=== PATIENT | male | born 1995 | race Caucasian/White ===

== ENCOUNTER 2018-08-29 21:03 | Emergency (ER) | payer BC, OTHER ==
[2018-08-29 21:36] VITALS: O2SAT 99
[2018-08-29] MEDS ORDERED: Eye-Stream Solution OP ONE (21:54)
[2018-08-29] MEDS ORDERED: Fluor-I-Strip/Ful-Flo OP ONE ×2 (21:54→22:07)
[2018-08-29] MEDS ORDERED: TETRACAINE 0.5% STERI-UNIT SOL OP STA (21:54)
--- NOTE | 2018-08-29 22:00 | ERPHSYRPT ---
- History of Present Illness Time Seen by Provider: 08/29/18 21:41 Source: patient Exam Limitations: no limitations Patient Subjective Stated Complaint: Pt states that while he was working at [employer] in [place], [place] he had a spark fly into his left eye 08/29/18 although he reports that he was wearing his safety glasses side monahan. Pt c/o pain, blurred vision, and drainage from left eye. Triage Nursing Assessment: Pt alert and oriented. In no apparent distress. Reports pain 5/10 in left eye with blurred vision with his glasses. Pain and vision worse around 08/29/18 1730. Sclera reddened, pupil 3mm and reactive to light. Physician History: 23-year-old white male with history of migraines, seizures, hypoglycemia, fractures, anxiety, depression, Patient arrives with complaint of pain in his left eye symptoms since 12:30 or 1 :00 on August 29, 2018. 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 He denies any other complaints. Past medical history includes migraines, seizures, hypoglycemia, fractures, anxiety, depression, bowel obstruction, amblyopia, schizophrenia, insomnia. Past surgical history includes orthopedic surgery, right shoulder surgery, right index finger surgery. Social history includes chewing tobacco and 2 beers a week. Patient denies illicit drug use. Timing/Duration: today Location: left eye Severity: moderate Apparent Injury: possibly Associated Symptoms: burning, sensitivity to light, redness, blurred vision, No itching, No matting, No eyelid swelling, No foreign body sensation, No decreased vision, No double vision Visual Assistive Devices: Glasses Chemical Exposure: No Welding Arc/Tanning Bed Exposure: Yes (possible spark from welding) Allergies/Adverse Reactions: amoxicillin [Amoxicillin] Allergy (Verified 09/28/13 20:32) ceftriaxone sodium [From Rocephin] Allergy (Verified 09/28/13 20:32) latex Allergy (Verified 08/29/18 21:15) Penicillins Allergy (Verified 08/29/18 21:15) Hx Tetanus, Diphtheria Vaccination/Date Given: Yes Hx Influenza Vaccination/Date Given: No (refuses) Hx Pneumococcal Vaccination/Date Given: No Immunizations Up to Date: Yes - Review of Systems Constitutional: No Fever, No Chills Eyes: Discharge, Eye Pain, Eye Redness (get a nurse in here M answer the phone home), Tearing, Vision Changes, No Double Vision, No Foreign Body Sensation Ears, Nose, & Throat: No Symptoms Respiratory: No Cough, No Dyspnea Cardiac: No Chest Pain, No Edema, No Syncope Abdominal/Gastrointestinal: No Abdominal Pain, No Nausea, No Vomiting, No Diarrhea Genitourinary Symptoms: No Dysuria Musculoskeletal: No Back Pain, No Neck Pain Skin: No Rash Neurological: No Dizziness, No Focal Weakness, No Sensory Changes Psychological: No Symptoms Endocrine: No Symptoms All Other Systems: Reviewed and Negative - Past Medical History Pertinent Past Medical History: Yes Neurological History: Migraines, Seizures ENT History: Other Cardiac History: No Pertinent History Respiratory History: No Pertinent History Endocrine Medical History: Hypoglycemia Musculoskeletal History: Fractures GI Medical History: Other History: No Pertinent History Psycho-Social History: Anxiety, Depression, Other Male Reproductive Disorders: No Pertinent History Other Medical History: 08/26/18 was at [facility] in [place] for a "moderate bowel obstruction. ambliopia. schizophrenia. insomnia - Past Surgical History Past Surgical History: Yes Neuro Surgical History: No Pertinent History Cardiac: No Pertinent History Respiratory: No Pertinent History Gastrointestinal: No Pertinent History Genitourinary: No Pertinent History Musculoskeletal: No Pertinent History, Orthopedic Surgery Male Surgical History: No Pertinent History Other Surgical History: right shoulder pin placed d/t fx. right index finger sgy d/t laceration - Social History Smoking Status: Former smoker How long have you smoked: 5 years Exposure to second hand smoke: Yes Drug Use: none Patient Lives Alone: No (roommate) - Nursing Vital Signs Nursing Vital Signs: Initial Vital Signs Temperature 97.7 F 08/29/18 21:16 Pulse Rate 80 08/29/18 21:16 Respiratory Rate 16 08/29/18 21:16 Blood Pressure 135/93 08/29/18 21:16 O2 Sat by Pulse Oximetry 99 08/29/18 21:16 Pain Scale Pain Intensity 0 - Physical Exam Vision Acuity Degree Evaluation Phase: Corrected Vision Acuity Right Eye: 20/30 Vision Acuity Left Eye: 20/50 Eye Exam: right eye: normal inspection, left eye: other (left conjunctiva is erythematous, left sclera mildly erythematous no foreign body noted), bilateral eye: PERRL, EOMI Ears, Nose, Throat Exam: normal ENT inspection Neck Exam: normal inspection Respiratory Exam: normal breath sounds, lungs clear, airway intact, No chest tenderness, No respiratory distress, No diminished breath sounds, No accessory muscle use, No prolonged expirations, No crackles/rales, No rhonchi, No wheezing , No stridor, No pleural rub Cardiovascular Exam: regular rate/rhythm, normal heart sounds, normal peripheral pulses (Tylenol molded, and), capillary refill <2 sec, No murmur ( history), No friction rub, No gallop, No tachycardia, No bradycardia, No irregular, No capillary refill 2-3 sec, No capillary refill >3 sec, No edema, No pulse deficit Gastrointestinal Exam: soft, normal bowel sounds, No tenderness, No distention, No mass, No guarding, No pulsatile mass Extremity Exam: normal inspection, normal range of motion Neurologic: alert, oriented x 3, cooperative, outpatient program coordinator II-XII nml as tested, normal mood/affect Skin Exam: normal color SpO2 Interpretation: normal (99%) SpO2: 99 Oxygen Delivery: Room Air - Course Nursing assessment & vital signs reviewed: Yes Ordered Tests: Active Orders 24 hr Category Date Time Status Visual Acuity STAT Care 08/29/18 21:38 Active Medication Summary Discontinued Medications Generic Name Dose Route Start Last Admin Trade Name Inez PRN Reason Stop Dose Admin Eye Irrigation Solution 15 ml 08/29/18 21:54 08/29/18 22:17 Eye-Stream Solution OP 08/29/18 21:55 15 ml STAT ONE Administration Eye Irrigation Solution Confirm 08/29/18 22:07 Eye-Stream Solution Administered 08/29/18 22:08 Dose 30 ml .ROUTE .STK-MED ONE Fluorescein Sodium 1 mg 08/29/18 21:54 08/29/18 22:17 Kmork-I-Lackb/Ful-Filiberto OP 08/29/18 21:55 1 mg STAT ONE Administration Fluorescein Sodium Confirm 08/29/18 22:07 Ixkps-E-Aocqn/Ful-Filiberto Administered 08/29/18 22:08 Dose 1 mg OP .STK-MED ONE Tetracaine HCl 4 ml 08/29/18 21:54 08/29/18 22:10 Tetracaine 0.5% Steri-Unit Keila OP 08/29/18 21:55 4 ml STAT STA Administration Tetracaine HCl Confirm 08/29/18 22:07 Tetracaine 0.5% Steri-Unit Keila Administered 08/29/18 22:08 Dose 4 ml OP .STK-MED ONE - Progress Progress: improved Progress Note: 08/29/18 22:26 This is a 23-year-old white male who arrives with complaint of a foreign body sensation in his left eye symptoms since around 1:00 this morning Patient states he was at work and a had Sparc shoot up underneath his safety glasses 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 Patient states that he is having blurry vision in the left eye tearing of the left eye he has erythema of the left eye. Physical examination I examination performed with corrected vision 20/50 on the left 20/30 on the right performed by the patient's nurse. Eyes PERRLA EOMI fundi are unremarkable. Left sclera slightly injected left conjunctiva is erythematous. No foreign bodies are noted in the left eye. Both lids are everted on the left eye no foreign bodies are noted. 0.5% tetracaine is instilled in the patient's left eye for comfort. Left eye is stained with fluorisceine, no corneal abrasions are noted patient without corneal foreign bodies. Left eye is rinsed with sterile eye wash solution. Ciloxan drops 0.5% ordered for the patient's left eye. Patient is to continue Ciloxan drops 0.5% one to 2 drops left eye 4 times a day for 5 days. Will write for a small amount of Papillion for the patient for pain. Patient will be instructed to drive home with Windows closed in the car, no TV watching, no reading, no computers. Follow-up with his family doctor, or radio disc jockey, ditcher if symptoms persist longer than 48 hours or no better tomorrow. Return for acute distress or for severe symptoms, - Departure Time of Disposition: 22:29 Departure Disposition: Home Clinical Impression: foreign body sensation left eye Conjunctivitis Qualifiers: Conjunctivitis type: acute Acute conjunctivitis type: unspecified Laterality: left Qualified Code(s): H10.32 - Unspecified acute conjunctivitis, left eye Condition: Fair Critical Care Time: No Referrals: DIOMEDES BLUNT [Primary Care Provider] - Additional Instructions: Return home. Ciloxan drops 0.3% one to 2 drops left eye 4 times a day for 5 days. Papillion as prescribed. Follow-up with your family doctor, company doctor, radio disc jockey, ditcher if symptoms no better tomorrow or persist longer than [address] home with Windows closed in the car. No reading, no computers, no TV watching 24 hours. Return for acute distress or for severe symptoms Prescriptions: Hydrocodone/Acetaminophen [Papillion 5-325 Tablet] 1 tab PO Q4-6HPRN PRN #6 tablet MDD 6 tablets PRN Reason: Pain
[2018-08-29] MEDS ORDERED: Eye-Stream Solution ONE (22:07)
[2018-08-29] MEDS ORDERED: TETRACAINE 0.5% STERI-UNIT SOL OP ONE (22:07)
[2018-08-29 22:21] VITALS: BP 130/79; PULSE 81
[2018-08-29] MEDS ORDERED: Ciloxan OPHTH OP ONE (22:25)
[2018-08-29] MEDS ORDERED: Ciloxan OPHTH ONE (22:27)
[2018-08-29] MEDS ORDERED: NORCO 5/325 MG PO ONE (22:34)
[2018-08-29] MEDS ORDERED: NORCO 5/325 MG ONE (22:36)
== END 2018-08-29 22:43 | disposition home or self-care (01) ==
LOC: ED 21:03
DX: T15.92XA Foreign body on external eye, part unspecified, left eye, initial encounter (principal); H10.9 Unspecified conjunctivitis; W22.8XXA Striking against or struck by other objects, initial encounter; Y93.89 Activity, other specified; Y92.89 Other specified places as the place of occurrence of the external cause; Y99.0 Civilian activity done for income or pay
CPT/HCPCS: 99283; A9270-GY

== ENCOUNTER 2019-08-16 02:34 | Emergency (ER) | payer BC, OTHER ==
[2019-08-16] MEDS ORDERED: Zofran 4 MG/2 ML VIAL IV ONE (02:48)
[2019-08-16] MEDS ORDERED: Sodium Chloride 0.9% 1000 ML 1,000 ML IV STA ×2 (02:48→03:17)
--- NOTE | 2019-08-16 02:48 | ERPHSYRPT ---
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 pt denies illicit drug use. pt has a h/o former illicit drug abuse in the past. pt arrives to ED tachycardic. he denies cp, denies abd pain. pt does not know what medication he was taking in the distant past for seizures. pt experienced a similar episode in May 2019. he has not taken any seizure medication. Timing/Duration: today Severity: moderate Associated Symptoms: seizure, No nausea, No vomiting, No abdominal pain, No shortness of breath, No chest pain, No headaches Allergies/Adverse Reactions: amoxicillin [Amoxicillin] Allergy (Verified 09/28/13 20:32) ceftriaxone sodium [From Rocephin] Allergy (Verified 09/28/13 20:32) latex Allergy (Verified 08/29/18 21:15) Penicillins Allergy (Verified 08/29/18 21:15) Hx Tetanus, Diphtheria Vaccination/Date Given: Yes Hx Influenza Vaccination/Date Given: No (refuses) Hx Pneumococcal Vaccination/Date Given: No - Review of Systems Constitutional: No Symptoms Eyes: No Symptoms Ears, Nose, & Throat: No Symptoms Respiratory: No Symptoms Cardiac: Palpitations Abdominal/Gastrointestinal: No Symptoms Genitourinary Symptoms: No Symptoms Musculoskeletal: No Symptoms Skin: No Symptoms Neurological: Seizure Psychological: No Symptoms, No Suicidal Ideations, No Homicidal Ideations Endocrine: No Symptoms Hematologic/Lymphatic: No Symptoms Immunological/Allergic: No Symptoms All Other Systems: Reviewed and Negative - Past Medical History Pertinent Past Medical History: Yes Neurological History: Migraines, Seizures ENT History: Other Cardiac History: No Pertinent History Respiratory History: No Pertinent History Endocrine Medical History: Hypoglycemia Musculoskeletal History: Fractures GI Medical History: Other History: No Pertinent History Psycho-Social History: Anxiety, Depression, Other Male Reproductive Disorders: No Pertinent History Other Medical History: 08/26/18 was at [facility] in [place] for a "moderate bowel obstruction. ambliopia. schizophrenia. insomnia - Past Surgical History Past Surgical History: Yes Neuro Surgical History: No Pertinent History Cardiac: No Pertinent History Respiratory: No Pertinent History Gastrointestinal: No Pertinent History Genitourinary: No Pertinent History Musculoskeletal: No Pertinent History, Orthopedic Surgery Male Surgical History: No Pertinent History Other Surgical History: right shoulder pin placed d/t fx. right index finger sgy d/t laceration - Social History Smoking Status: Former smoker How long have you smoked: 5 years Exposure to second hand smoke: Yes Drug Use: none Patient Lives Alone: No (roommate) - Nursing Vital Signs Nursing Vital Signs: Initial Vital Signs Temperature 98.6 F 08/16/19 02:35 Pulse Rate 123 H 08/16/19 02:35 Respiratory Rate 18 08/16/19 02:35 Blood Pressure 124/69 08/16/19 02:35 O2 Sat by Pulse Oximetry 98 08/16/19 02:35 Pain Scale Pain Intensity 0 - Physical Exam General Appearance: moderate distress, alert, anxiety Eye Exam: PERRL/EOMI, eyes nml inspection Ears, Nose, Throat Exam: normal ENT inspection, moist mucous membranes Neck Exam: normal inspection, non-tender, supple, full range of motion Respiratory Exam: normal breath sounds, lungs clear, airway intact, No chest tenderness, No respiratory distress Cardiovascular Exam: tachycardia Gastrointestinal/Abdomen Exam: soft, normal bowel sounds, No tenderness, No guarding, No rebound Male Genitalia Exam: normal genitalia Rectal Exam: not done Back Exam: normal inspection, normal range of motion, No CVA tenderness, No vertebral tenderness Extremity Exam: normal inspection, normal range of motion, pelvis stable Neurologic Exam: alert, oriented x 3, cooperative, act tutor II-XII nml as tested, normal mood/affect Skin Exam: normal color, warm, dry Lymphatic Exam: No adenopathy O2 Delivery: Room Air - Course Nursing assessment & vital signs reviewed: Yes EKG Interpreted by Me: RATE (135), Sinus Tach, NORMAL AXIS, NORMAL INTERVALS, NORMAL QRS, Non-specific ST Changes Ordered Tests: Active Orders 24 hr Category Date Time Status Accucheck STAT Care 08/16/19 02:48 Active Superintendent Building STAT Care 08/16/19 02:51 Active Catheter-Tribune Francois STAT Care 08/16/19 02:48 Active EKG-ER Only STAT Care 08/16/19 02:48 Active IV Insertion STAT Care 08/16/19 02:54 Active IV Insertion-2nd Peripheral STAT Care 08/16/19 02:54 Active Oxygen-ED Only Nasal Cannula 4 lpm Care 08/16/19 03:12 Active Pulse Oximetry (ED) STAT Care 08/16/19 02:48 Active HEAD WITHOUT CONTRAST [CT] Stat Exams 08/16/19 02:49 Taken ABG [ARTERIAL BLOOD GASES] Stat Lab 08/16/19 03:33 Results ACETAMINOPHEN Stat Lab 08/16/19 03:01 Completed CBC W DIFF Stat Lab 08/16/19 03:01 Completed CMP Stat Lab 08/16/19 03:01 Completed CULTURE,URINE Stat Lab 08/16/19 02:54 Ordered ETHYL ALCOHOL Stat Lab 08/16/19 03:01 Completed Lactic Acid Stat Lab 08/16/19 03:08 Results Manual Differential NC Stat Lab 08/16/19 03:01 Completed SALICYLATE Stat Lab 08/16/19 03:01 Completed UA W/RFX UR CULTURE Stat Lab 08/16/19 03:01 Completed Urine Triage Profile Stat Lab 08/16/19 03:01 Completed Medication Summary Discontinued Medications Generic Name Dose Route Start Last Admin Trade Name Freq PRN Reason Stop Dose Admin Sodium Chloride 1,000 mls @ 999 mls/hr 08/16/19 02:48 08/16/19 03:16 Sodium Chloride 0.9% 1000 Ml IV 08/16/19 03:48 Infused .Q1H1M STA Infusion Sodium Chloride Confirm 08/16/19 02:56 Sodium Chloride 0.9% 1000 Ml Administered 08/16/19 02:57 Dose 1,000 mls @ ud .ROUTE .STK-MED ONE Sodium Chloride 1,000 mls @ 999 mls/hr 08/16/19 03:17 08/16/19 04:08 Sodium Chloride 0.9% 1000 Ml IV 08/16/19 04:17 Infused .Q1H1M STA Infusion Sodium Chloride Confirm 08/16/19 03:16 Sodium Chloride 0.9% 1000 Ml Administered 08/16/19 03:17 Dose 1,000 mls @ ud .ROUTE .STK-MED ONE Lorazepam 2 mg 08/16/19 02:52 08/16/19 03:00 Ativan 2 Mg/1 Ml Vial IV 08/16/19 02:53 2 mg STAT ONE Administration Lorazepam Confirm 08/16/19 02:56 Ativan 2 Mg/1 Ml Vial Administered 08/16/19 02:57 Dose 2 mg .ROUTE .STK-MED ONE Ondansetron HCl 4 mg 08/16/19 02:48 08/16/19 03:00 Zofran 4 Mg/2 Ml Vial IV 08/16/19 02:49 4 mg STAT ONE Administration Ondansetron HCl Confirm 08/16/19 02:56 Zofran 4 Mg/2 Ml Vial Administered 08/16/19 02:57 Dose 4 mg .ROUTE .STK-MED ONE Lab/Rad Data: Laboratory Result Diagrams 08/16/19 03:01 08/16/19 03:01 Laboratory Results 08/16/19 08/16/19 08/16/19 Range/Units 03:33 03:08 03:01 WBC (4.0-10.5) K/mm3 RBC (4.1-5.6) M/mm3 Hgb (12.5-18.0) gm/dl Hct (42-50) % MCV (78-100) fl MCH (26-32) pg MCHC (32-36) g/dl RDW (11.5-14.0) % Plt Count (150-450) K/mm3 MPV (6-9.5) fl Puncture Site Pending pCO2 41 (35-45) mmHg pO2 204 H* (75-100) mmHg Base Excess -0.8 (-2.0-2.0) O2 Saturation 96.7 (94-100) g/dF ABG pH 7.38 (7.35-7.45) ABG HCO3 24.3 (22-28) ABG O2 Sat (Measured) 98.9 (95-100) % Craig Test Pending A-a Gradient -106 a/A Ratio 2.08 Hemoglobin 12.9 Carboxyhemoglobin 1.0 (0.0-6.9) % THgb Methemoglobin 1.2 L (1.4-1.5) % Temperature 37.0 C POC O2 Flow Rate 21 % Sodium (137-145) mmol/L Potassium 3.1 L (3.5-5.1) mmol/L Chloride (98-107) mmol/L Carbon Dioxide (22-30) mmol/L Anion Gap (5-15) MEQ/L BUN (9-20) mg/dL Creatinine (0.66-1.25) mg/dL Estimated GFR ML/MIN Glucose (74-106) mg/dL Lactic Acid 3.5 H (0.4-2.0) Calcium (8.4-10.2) mg/dL Total Bilirubin (0.2-1.3) mg/dL AST (17-59) U/L ALT (0-50) U/L Alkaline Phosphatase (38-126) U/L Serum Total Protein (6.3-8.2) g/dL Albumin (3.5-5.0) g/dL Urine Color (YELLOW) Urine Appearance (CLEAR) Urine pH (5-6) Ur Specific [place] (1.005-1.025) Urine Protein (Negative) Urine Ketones (NEGATIVE) Urine Blood (0-5) Lucho/ul Urine Nitrite (NEGATIVE) Urine Bilirubin (NEGATIVE) Urine Urobilinogen (0-1) mg/dL Ur Leukocyte Esterase (NEGATIVE) Urine WBC (Auto) (0-5) /HPF Urine RBC (Auto) (0-2) /HPF U Epithel Cells (Auto) (FEW) /HPF Urine Bacteria (Auto) (NEGATIVE) /HPF Urine Culture Reflexed (NO) Urine Glucose (NEGATIVE) mg/dL Salicylates (2-20) mg/dL Urine Opiates Level NEGATIVE (NEGATIVE) Ur Methadone NEGATIVE (NEGATIVE) Acetaminophen (10-30) ug/ml Urine Barbiturates NEGATIVE (NEGATIVE) Ur Phencyclidine (PCP) NEGATIVE (NEGATIVE) Urine Amphetamine NEGATIVE (NEGATIVE) U Benzodiazepine Level POSITIVE (NEGATIVE) Urine Cocaine NEGATIVE (NEGATIVE) Urine Marijuana (THC) NEGATIVE (NEGATIVE) Ethyl Alcohol (0-10) mg/dL 08/16/19 08/16/19 08/16/19 Range/Units 03:01 03:01 03:01 WBC 6.9 (4.0-10.5) K/mm3 RBC 5.09 (4.1-5.6) M/mm3 Hgb 14.8 (12.5-18.0) gm/dl Hct 43.6 (42-50) % MCV 85.7 (78-100) fl MCH 29.1 (26-32) pg MCHC 33.9 (32-36) g/dl RDW 13.1 (11.5-14.0) % Plt Count 154 (150-450) K/mm3 MPV 11.2 H (6-9.5) fl Puncture Site pCO2 (35-45) mmHg pO2 (75-100) mmHg Base Excess (-2.0-2.0) O2 Saturation (94-100) g/dF ABG pH (7.35-7.45) ABG HCO3 (22-28) ABG O2 Sat (Measured) (95-100) % Craig Test A-a Gradient a/A Ratio Hemoglobin Carboxyhemoglobin (0.0-6.9) % THgb Methemoglobin (1.4-1.5) % Temperature C POC O2 Flow Rate % Sodium 143 (137-145) mmol/L Potassium 3.8 (3.5-5.1) mmol/L Chloride 104 (98-107) mmol/L Carbon Dioxide 26 (22-30) mmol/L Anion Gap 16.8 H (5-15) MEQ/L BUN 11 (9-20) mg/dL Creatinine 1.13 (0.66-1.25) mg/dL Estimated GFR > 60.0 ML/MIN Glucose 99 (74-106) mg/dL Lactic Acid (0.4-2.0) Calcium 9.0 (8.4-10.2) mg/dL Total Bilirubin 0.50 (0.2-1.3) mg/dL AST 23 (17-59) U/L ALT 14 (0-50) U/L Alkaline Phosphatase 63 (38-126) U/L Serum Total Protein 7.9 (6.3-8.2) g/dL Albumin 4.3 (3.5-5.0) g/dL Urine Color YELLOW (YELLOW) Urine Appearance SLIGHTLY CLOUDY (CLEAR) Urine pH 7.0 (5-6) Ur Specific [place] 1.019 (1.005-1.025) Urine Protein NEGATIVE (Negative) Urine Ketones NEGATIVE (NEGATIVE) Urine Blood NEGATIVE (0-5) Lucho/ul Urine Nitrite NEGATIVE (NEGATIVE) Urine Bilirubin NEGATIVE (NEGATIVE) Urine Urobilinogen 2 (0-1) mg/dL Ur Leukocyte Esterase NEGATIVE (NEGATIVE) Urine WBC (Auto) NONE (0-5) /HPF Urine RBC (Auto) 0-2 (0-2) /HPF U Epithel Cells (Auto) NONE (FEW) /HPF Urine Bacteria (Auto) NONE (NEGATIVE) /HPF Urine Culture Reflexed ORDERED SEPARATELY (NO) Urine Glucose NEGATIVE (NEGATIVE) mg/dL Salicylates < 1.0 L (2-20) mg/dL Urine Opiates Level (NEGATIVE) Ur Methadone (NEGATIVE) Acetaminophen < 10 L (10-30) ug/ml Urine Barbiturates (NEGATIVE) Ur Phencyclidine (PCP) (NEGATIVE) Urine Amphetamine (NEGATIVE) U Benzodiazepine Level (NEGATIVE) Urine Cocaine (NEGATIVE) Urine Marijuana (THC) (NEGATIVE) Ethyl Alcohol < 10 (0-10) mg/dL - Progress Progress: improved, re-examined Progress Note: 08/16/19 04:42 ct headd-no acute intracranial findings Counseled pt/family regarding: lab results, diagnosis, need for follow-up, rad results - Departure Departure Disposition: Home Clinical Impression: Seizure Condition: Stable Critical Care Time: No Referrals: DIOMEDES WALKER [Primary Care Provider] - Additional Instructions: follow up today with dr. walker's office to arrange an appointment to discuss management of your seizures. Prescriptions: Phenytoin Sod Extended 100 mg* [Dilantin 100 MG] 100 mg PO TID #30 capsule
[2019-08-16] MEDS ORDERED: Ativan 2 MG/1 ML VIAL IV ONE (02:52)
[2019-08-16] MEDS ORDERED: Ativan 2 MG/1 ML VIAL ONE (02:56)
[2019-08-16] MEDS ORDERED: Zofran 4 MG/2 ML VIAL ONE (02:56)
[2019-08-16] MEDS ORDERED: Sodium Chloride 0.9% 1000 ML 1,000 ML ONE ×2 (02:56→03:16)
[2019-08-16 02:59] LABS: Hematocrit 43.6 % (42-50); Hemoglobin 14.8 gm/dl (12.5-18.0); Mean Cell Volume 85.7 fl (78-100); Mean Corpuscular Hemoglobin 29.1 pg (26-32); Mean Corpuscular Hgb Concent. 33.9 g/dl (32-36); Mean Platelet Volume 11.2 fl (6-9.5); Platelet Count 154 K/mm3 (150-450); Red Blood Count 5.09 M/mm3 (4.1-5.6); Red Cell Distribution Width 13.1 % (11.5-14.0); White Blood Count 6.9 K/mm3 (4.0-10.5)
[2019-08-16 03:03] LABS: Appearance SLIGHTLY CLOUDY (CLEAR); Bilirubin NEGATIVE (NEGATIVE); Blood NEGATIVE Ery/ul (0-5); Glucose NEGATIVE (NEGATIVE); Ketones NEGATIVE (NEGATIVE); Leukocyte Esterase NEGATIVE (NEGATIVE); Nitrite NEGATIVE (NEGATIVE); Protein,Urine Dip NEGATIVE (Negative); RBC 0-2 /HPF (0-2); Specific Gravity 1.019 (1.005-1.025); Urobilinogen 2 mg/dL (0-1)
[2019-08-16 03:07] LABS: ALBUMIN 4.3 g/dL (3.5-5.0); ALKALINE PHOSPHATASE 63 U/L (38-126); ANION GAP 16.8 MEQ/L (5-15); BLOOD UREA NITROGEN 11 mg/dL (9-20); CHLORIDE 104 mmol/L (98-107); Carbon Dioxide 26 mmol/L (22-30); Creatinine 1 1.13 mg/dL (0.66-1.25); Glucose 99 mg/dL (74-106); Potassium 3.8 mmol/L (3.5-5.1); SGOT/AST 23 U/L (17-59); SGPT/ALT 14 U/L (0-50); SODIUM 143 mmol/L (137-145); Total Protein 7.9 g/dL (6.3-8.2)
[2019-08-16 03:08] LABS: ACETAMINOPHEN < 10 ug/ml (10-30); ETHYL ALCOHOL < 10 mg/dL (0-10); SALICYLATE < 1.0 mg/dL (2-20)
[2019-08-16 03:13] LABS: Amphetamine,Urine NEGATIVE (NEGATIVE); Barbiturate,Urine NEGATIVE (NEGATIVE); Benzodiazepine,Urine POSITIVE (NEGATIVE); Cocaine,Urine NEGATIVE (NEGATIVE); Methadone,Urine NEGATIVE (NEGATIVE); Opiate,Urine NEGATIVE (NEGATIVE); PCP,Urine NEGATIVE (NEGATIVE); THC,Urine NEGATIVE (NEGATIVE)
[2019-08-16 03:21] LABS: Lactic Acid 3.5 (0.4-2.0)
[2019-08-16 03:34] LABS: A-aADO2 -106; ABG HEMOGLOBIN 12.9; ABG POTASSIUM 3.1 (3.5-5.1); ARTERIAL BLD GAS O2 SATURATION 98.9 % (95-100); ARTERIAL BLOOD GAS BASE EXCESS -0.8 (-2.0-2.0); ARTERIAL BLOOD GAS FIO2 21 %; ARTERIAL BLOOD GAS PCO2 41 mmHg (35-45); ARTERIAL BLOOD GAS PO2 204 mmHg (75-100); ARTERIAL BLOOD GAS pH 7.38 (7.35-7.45); HCO3- 24.3 (22-28); HGB O2 SAT 96.7 g/dF (94-100); Methhemoglobin 1.2 % (1.4-1.5); paO2 pAO1 2.08
[2019-08-16 04:10] VITALS: O2SAT 98
[2019-08-16] MEDS ORDERED: DILANTIN IV 250 MG/5 ML*** 1,000 MG in Sodium Chloride 0.9% 100 ML IVPB 100 ML IV ONE (04:42)
[2019-08-16] MEDS ORDERED: Sodium Chloride 0.9% 100 ML IVPB 100 ML IV ONE (04:45)
[2019-08-16] MEDS ORDERED: DILANTIN IV 250 MG/5 ML ONE (04:45)
[2019-08-16 04:55] LABS: ATYPICAL LYMPHS 3 %; Eosinophil 3 % (0.00-3.0); Lymphocytes 41 % (24-44); Monocyte 7 % (0.0-12.0); Neutrophils 46 % (36.-66.); Platelet Estimate DECREASED (NORMAL); Total Cells Counted 100
[2019-08-16 04:56] LABS: Toxic Granulation 1+
[2019-08-16 05:01] VITALS: BP 130/71; PULSE 108
[2019-08-16 05:13] LABS: ABG SITE LEFT WRIST
[2019-08-16 05:14] LABS: ALLEN TEST OK? YES
--- NOTE | 2019-08-16 09:03 | XRAY ---
Indication: Seizure. Multiple contiguous axial images obtained through the head without contrast. Comparison: March 07, 2013. Normal appearing brain parenchyma, ventricles, and bony calvarium. There is moderate mucosal thickening of the right sphenoid sinus with fluid leveling. Remaining visualized paranasal sinuses and mastoid air cells are clear. Impression: Paranasal sinus disease. Remaining CT head without contrast exam is negative. Comment: Preliminary interpretation was made by [facility]. No discrepancy. CTDI 59.64
== END 2019-08-16 05:39 | disposition home or self-care (01) ==
LOC: ED 02:34
DX: G40.909 Epilepsy, unspecified, not intractable, without status epilepticus (principal)
CPT/HCPCS: 36000; 36415; 36600; 51702; 70450; 80053; 80307; 81001; 82375; 82803; 82962; 83605; 85025; 87086; 93005; 93041; 94760; 96374; 96375; 99285; 99291; G0480; G0481; 96365; J1165; J2060; J2405

== ENCOUNTER 2020-03-31 17:44 | Emergency (ER) | payer OTHER ==
[2020-03-31] MEDS ORDERED: Sodium Chloride 0.9% 1000 ML 1,000 ML IV STA (18:06)
[2020-03-31] MEDS ORDERED: Zofran 4 MG/2 ML VIAL IV ONE (18:06)
[2020-03-31] MEDS ORDERED: Ativan 2 MG/1 ML VIAL IV ONE (18:06)
[2020-03-31] MEDS ORDERED: Ativan 2 MG/1 ML VIAL ONE (18:12)
[2020-03-31] MEDS ORDERED: Sodium Chloride 0.9% 1000 ML 1,000 ML ONE (18:13)
[2020-03-31] MEDS ORDERED: Zofran 4 MG/2 ML VIAL ONE (18:13)
--- NOTE | 2020-03-31 18:22 | ERPHSYRPT ---
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 Patient states he has a history of seizures. States that he may have had a seizure while sleeping. Patient woke up feeling slightly dizzy, slight headache. Ringing in his ears. No other falls or trauma. No fever no chills. Up-to-date on his tetanus shot. Allergies/Adverse Reactions: amoxicillin [Amoxicillin] Allergy (Verified 03/31/20 18:04) ceftriaxone sodium [From Rocephin] Allergy (Verified 03/31/20 18:04) latex Allergy (Verified 03/31/20 18:04) Penicillins Allergy (Verified 03/31/20 18:04) Home Medications: Divalproex Sodium ER 250 mg [Depakote EXTENDED RELEASE 250 MG] 500 mg DAILY 03/31/20 [History] Hx Tetanus, Diphtheria Vaccination/Date Given: Yes Hx Influenza Vaccination/Date Given: No Hx Pneumococcal Vaccination/Date Given: No Immunizations Up to Date: Yes Travel Risk - International Travel Have you traveled outside of the country in past 3 weeks: No - Coronavirus Screening Are you exhibiting any of the following symptoms?: No Close contact with a COVID-19 positive Pt in past 14-21 Days: No - Review of Systems Constitutional: No Fever, No Chills Eyes: No Symptoms Ears, Nose, & Throat: No Symptoms Respiratory: No Cough, No Dyspnea Cardiac: No Chest Pain, No Edema, No Syncope Abdominal/Gastrointestinal: No Abdominal Pain, No Nausea, No Vomiting, No Diarrhea Genitourinary Symptoms: No Dysuria Musculoskeletal: No Back Pain, No Neck Pain Skin: No Rash Neurological: No Dizziness, No Focal Weakness, No Sensory Changes Psychological: No Symptoms Endocrine: No Symptoms All Other Systems: Reviewed and Negative - Past Medical History Pertinent Past Medical History: Yes Neurological History: Migraines, Seizures ENT History: Other Cardiac History: No Pertinent History Respiratory History: No Pertinent History Endocrine Medical History: Hypoglycemia Musculoskeletal History: Fractures GI Medical History: Other History: No Pertinent History Psycho-Social History: Anxiety, Depression, Other Male Reproductive Disorders: No Pertinent History Other Medical History: 08/26/18 was at [facility] in [place] for a "moderate bowel obstruction. ambliopia. schizophrenia. insomnia - Past Surgical History Past Surgical History: Yes Neuro Surgical History: No Pertinent History Cardiac: No Pertinent History Respiratory: No Pertinent History Gastrointestinal: No Pertinent History Genitourinary: No Pertinent History Musculoskeletal: No Pertinent History, Orthopedic Surgery Male Surgical History: No Pertinent History Other Surgical History: right shoulder pin placed d/t fx. right index finger sgy d/t laceration - Social History Smoking Status: Never smoker How long have you smoked: 5 years Exposure to second hand smoke: Yes Drug Use: none Patient Lives Alone: No - Nursing Vital Signs Nursing Vital Signs: Pain Scale Pain Intensity 10 - Physical Exam General Appearance: no apparent distress, alert Eye Exam: PERRL/EOMI, eyes nml inspection Ears, Nose, Throat Exam: normal ENT inspection, TMs normal, pharynx normal, moist mucous membranes Neck Exam: normal inspection, non-tender, supple, full range of motion Respiratory Exam: normal breath sounds, lungs clear, No respiratory distress Cardiovascular Exam: regular rate/rhythm, normal heart sounds, normal peripheral pulses Gastrointestinal/Abdomen Exam: soft, normal bowel sounds, No tenderness, No mass Back Exam: normal inspection, normal range of motion, No CVA tenderness, No vertebral tenderness Extremity Exam: normal inspection, normal range of motion, pelvis stable Neurologic Exam: alert, oriented x 3, cooperative, normal mood/affect, nml cerebellar function, nml station & gait, sensation nml, No motor deficits Skin Exam: normal color, warm, dry, No rash Lymphatic Exam: No adenopathy SpO2 Interpretation: normal Comments: 03/31/20 18:21 No trismus, able to fully extend neck, normal range of motion of neck without pain. Uvula is midline, no swelling of the mouth, noraml oropharynx. No exudate, no signs of meningitis, no floor of mouth swelling, no hot potato voice on exam. No buccal swelling, no gum bleeding, no signs of tooth abscess/infection. No obvious deformity, sensation intact, 2+ capillary refill, 2 point tactile discrimination intact. 5 out of 5 strength. Full range of motion without pain. Compartments are soft, nontender. Overlying skin shows no tenting, bruising, ecchymosis. Motor: There is no pronator drift of out-stretched arms. Muscle bulk and tone are normal. Strength is full bilaterally. Reflexes: Reflexes are 2+ and symmetric at the biceps, triceps, knees, and ankles. Plantar responses are flexor. Sensory: Light touch sense are intact in bilateral upper and lower extremities. There is no sign of neglect. Coordination: Rapid alternating movements are intact. There is no dysmetria on [id number] and [id number]. There are no abnormal or extraneous movements. Romberg is absent. Gait/Stance: Posture is normal. Gait is steady with normal steps, base, arm swing, and turning. Heel and toe walking are normal. Tandem gait is normal. - Course Nursing assessment & vital signs reviewed: Yes EKG Interpreted by Me: RATE, Sinus Rhythm, Other (Sinus rhythm, rate of 63, OH interval 144, QRS 94, QTc is 413, no STEMI, no other ST changes..) Ordered Tests: Active Orders 24 hr Category Date Time Status EKG-ER Only STAT Care 03/31/20 18:06 Active IV Insertion STAT Care 03/31/20 18:06 Active HEAD WITHOUT CONTRAST [CT] Stat Exams 03/31/20 18:06 Taken CBC W DIFF Stat Lab 03/31/20 18:19 Completed CMP Stat Lab 03/31/20 18:19 Completed UA W/RFX UR CULTURE Stat Lab 03/31/20 18:06 Uncollected Medication Summary Discontinued Medications Generic Name Dose Route Start Last Admin Trade Name Freq PRN Reason Stop Dose Admin Sodium Chloride 1,000 mls @ 999 mls/hr 03/31/20 18:06 03/31/20 18:17 Sodium Chloride 0.9% 1000 Ml IV 03/31/20 19:06 999 mls/hr .Q1H1M STA Administration Sodium Chloride Confirm 03/31/20 18:13 Sodium Chloride 0.9% 1000 Ml Administered 03/31/20 18:14 Dose 1,000 mls @ ud .ROUTE .STK-MED ONE Lorazepam 1 mg 03/31/20 18:06 03/31/20 18:16 Ativan 2 Mg/1 Ml Vial IV 03/31/20 18:07 1 mg STAT ONE Administration Lorazepam Confirm 03/31/20 18:12 Ativan 2 Mg/1 Ml Vial Administered 03/31/20 18:13 Dose 2 mg .ROUTE .STK-MED ONE Ondansetron HCl 4 mg 03/31/20 18:06 03/31/20 18:16 Zofran 4 Mg/2 Ml Vial IV 03/31/20 18:07 4 mg STAT ONE Administration Ondansetron HCl Confirm 03/31/20 18:13 Zofran 4 Mg/2 Ml Vial Administered 03/31/20 18:14 Dose 4 mg .ROUTE .STK-MED ONE Lab/Rad Data: Laboratory Result Diagrams 03/31/20 18:19 03/31/20 18:19 Laboratory Results 03/31/20 03/31/20 Range/Units 18:19 18:19 WBC 3.9 L (4.0-10.5) K/mm3 RBC 5.00 (4.1-5.6) M/mm3 Hgb 14.8 (12.5-18.0) gm/dl Hct 44.1 (42-50) % MCV 88.2 (78-100) fl MCH 29.6 (26-32) pg MCHC 33.6 (32-36) g/dl RDW 13.1 (11.5-14.0) % Plt Count 132 L (150-450) K/mm3 MPV 11.3 H (7.5-11.0) fl Gran % 27.4 L (36.0-66.0) % Eos # (Auto) 0.04 (0-0.5) Absolute Lymphs (auto) 2.45 (1.0-4.6) Absolute Monos (auto) 0.31 (0.0-1.3) Lymphocytes % 63.3 H (24.0-44.0) % Monocytes % 8.0 (0.0-12.0) % Eosinophils % 1.0 (0.00-5.0) % Basophils % 0.3 (0.0-0.4) % Absolute Granulocytes 1.06 L (1.4-6.9) Basophils # 0.01 (0-0.4) Sodium 142 (137-145) mmol/L Potassium 3.8 (3.5-5.1) mmol/L Chloride 108 H (98-107) mmol/L Carbon Dioxide 25 (22-30) mmol/L Anion Gap 12.9 (5-15) MEQ/L BUN 11 (9-20) mg/dL Creatinine 0.80 (0.66-1.25) mg/dL Estimated GFR > 60.0 ML/MIN Glucose 103 (74-106) mg/dL Calcium 9.2 (8.4-10.2) mg/dL Total Bilirubin 0.60 (0.2-1.3) mg/dL AST 29 (17-59) U/L ALT 14 (0-50) U/L Alkaline Phosphatase 68 (38-126) U/L Serum Total Protein 8.1 (6.3-8.2) g/dL Albumin 4.5 (3.5-5.0) g/dL - Progress Progress: improved Progress Note: 03/31/20 18:22 - We'll obtain basic labs, fluids, EKG, troponin, chest x-ray - I feel comfortable with one time negative troponin given symptoms have improved and started greater then 6 hours ago. - EKG shows no ST changes - my read. See full read below. - O2 saturations consistently greater than 95%. - CXR shows no pneumonia, pneumothorax - my read - no other obvious lab abnormalities 03/31/20 19:[address] and the rest of work-up largely unremarkable. Patient feeling improved here. EKG shows sinus tachycardia, no arrhythmias. Low suspicion for meningitis or other infectious cause given no leukocytosis and normal physical exam. At this point time I will discharge patient home. Return her for any new or changing symptoms. Patient states his understanding will follow-up as described... Patient states he Jake has follow-up at 9:45 AM with his neurologist 2 days from now., That is Friday morning. Therefore, he will follow-up as described Counseled pt/family regarding: lab results, diagnosis, need for follow-up - Departure Departure Disposition: Home Clinical Impression: Seizure Condition: Stable Critical Care Time: No Referrals: DIOMEDES BLUNT [Primary Care Provider] - Instructions: Dizziness, Nonvertigo, (DC)
[2020-03-31 18:23] LABS: Absolute Neutrophil Ct (ANC) 1.06 (1.4-6.9); BASOPHIL % 0.3 % (0.0-0.4); Basophil (Absolute #) 0.01 (0-0.4); Eosinophil (Absolute #) 0.04 (0-0.5); Hematocrit 44.1 % (42-50); Hemoglobin 14.8 gm/dl (12.5-18.0); Lymphocyte (Absolute #) 2.45 (1.0-4.6); Lymphocytes % 63.3 % (24.0-44.0); Mean Cell Volume 88.2 fl (78-100); Mean Corpuscular Hemoglobin 29.6 pg (26-32); Mean Corpuscular Hgb Concent. 33.6 g/dl (32-36); Mean Platelet Volume 11.3 fl (7.5-11.0); Monocyte (Absolute #) 0.31 (0.0-1.3); Neutrophil % 27.4 % (36.0-66.0); Platelet Count 132 K/mm3 (150-450); Red Cell Distribution Width 13.1 % (11.5-14.0); White Blood Count 3.9 K/mm3 (4.0-10.5)
[2020-03-31 18:35] LABS: ALBUMIN 4.5 g/dL (3.5-5.0); ALKALINE PHOSPHATASE 68 U/L (38-126); ANION GAP 12.9 MEQ/L (5-15); BLOOD UREA NITROGEN 11 mg/dL (9-20); CHLORIDE 108 mmol/L (98-107); Calcium 9.2 mg/dL (8.4-10.2); Carbon Dioxide 25 mmol/L (22-30); Glucose 103 mg/dL (74-106); Potassium 3.8 mmol/L (3.5-5.1); SGOT/AST 29 U/L (17-59); SGPT/ALT 14 U/L (0-50); SODIUM 142 mmol/L (137-145); Total Protein 8.1 g/dL (6.3-8.2)
[2020-03-31 19:10] VITALS: BP 130/77
[2020-03-31 19:26] VITALS: PULSE 67; O2SAT 98
--- NOTE | 2020-03-31 21:22 | XRAY ---
Indication: Dizziness. Ear ringing. Trouble moving hands. History epilepsy. Multiple contiguous axial images obtained through the head without contrast. Comparison: August 16, 2019. Continued normal appearing brain parenchyma, ventricles, and bony calvarium. Visualized paranasal sinuses and mastoid air cells are clear. Impression: Normal CT head without contrast exam. Comment: Preliminary interpretation was made by [facility]. No critical discrepancy.
== END 2020-03-31 19:28 | disposition home or self-care (01) ==
LOC: ED 17:44
DX: G40.909 Epilepsy, unspecified, not intractable, without status epilepticus (principal)
CPT/HCPCS: 36000; 36415; 70450; 80053; 85025; 93005; 96360; 96374; 96375; 99284; J2060; J2405

== ENCOUNTER 2021-04-24 12:01 | Emergency (ER) | payer OTHER ==
--- NOTE | 2021-04-24 12:04 | ERPHSYRPT ---
- History of Present Illness Time Seen by Provider: 04/24/21 12:04 Source: patient, EMS Exam Limitations: no limitations Physician History: This is a 26-year-old white male who has been noncompliant with his Depakote medication over the last 6 months and presents via EMS with multiple episodes of seizures yesterday and today. The same EMS took this patient yesterday to [facility] because of sudden onset of seizures. They are at [facility], it is reported that he received Ativan intravenously but no medications for home. He also had a negative CAT scan per EMS report from yesterday's [facility] emergency department visit. Patient states that that he has not been taking his Depakote medication for 6 months because he does not like the way it makes him feel. Patient denies illicit drug use. 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 Patient denies head injury. Upon admission into the emergency department today, he had a seizure that lasted approximately 15 second s. He did not soil his pants. He did not lose bowel or bladder control. As soon as the seizure stopped patient was alert oriented and coherent. Patient states that he is under a lot of family stressors. In addition, his girlfriend recently broke up with him. Severity: moderate Character of Deficits: none Deficits: no difficulties Baseline/Normal Cognition: alert oriented x 3 Current Cognition: alert oriented x 3 Baseline Gait: walks w/o assistance Allergies/Adverse Reactions: amoxicillin [Amoxicillin] Allergy (Verified 04/24/21 12:16) ceftriaxone sodium [From Rocephin] Allergy (Verified 04/24/21 12:16) latex Allergy (Verified 04/24/21 12:16) Penicillins Allergy (Verified 04/24/21 12:16) Home Medications: Divalproex Sodium ER 250 mg [Depakote EXTENDED RELEASE 250 MG] 500 mg DAILY 03/31/20 [History] Hx Tetanus, Diphtheria Vaccination/Date Given: Yes Hx Influenza Vaccination/Date Given: No Hx Pneumococcal Vaccination/Date Given: No Travel Risk - International Travel Have you traveled outside of the country in past 3 weeks: No - Coronavirus Screening Are you exhibiting any of the following symptoms?: No Close contact with a COVID-19 positive Pt in past 14-21 Days: No - Review of Systems Constitutional: No Symptoms Eyes: No Symptoms Ears, Nose, & Throat: No Symptoms Respiratory: No Symptoms Cardiac: No Symptoms Abdominal/Gastrointestinal: No Symptoms Genitourinary Symptoms: No Symptoms Musculoskeletal: No Symptoms Skin: No Symptoms Neurological: No Symptoms Psychological: No Symptoms Endocrine: No Symptoms Hematologic/Lymphatic: No Symptoms Immunological/Allergic: No Symptoms All Other Systems: Reviewed and Negative - Past Medical History Pertinent Past Medical History: Yes Neurological History: Migraines, Seizures ENT History: Other Cardiac History: No Pertinent History Respiratory History: No Pertinent History Endocrine Medical History: Hypoglycemia Musculoskeletal History: Fractures GI Medical History: Other History: No Pertinent History Psycho-Social History: Anxiety, Depression, Other Male Reproductive Disorders: No Pertinent History Other Medical History: 08/26/18 was at [facility] in [place] for a "moderate bowel obstruction. ambliopia. schizophrenia. insomnia - Past Surgical History Past Surgical History: Yes Neuro Surgical History: No Pertinent History Cardiac: No Pertinent History Respiratory: No Pertinent History Gastrointestinal: No Pertinent History Genitourinary: No Pertinent History Musculoskeletal: No Pertinent History, Orthopedic Surgery Male Surgical History: No Pertinent History Other Surgical History: right shoulder pin placed d/t fx. right index finger sgy d/t laceration - Social History Smoking Status: Never smoker How long have you smoked: 5 years Exposure to second hand smoke: Yes Drug Use: none Patient Lives Alone: No - Nursing Vital Signs Nursing Vital Signs: Initial Vital Signs Temperature 98.0 F 04/24/21 12:02 Pulse Rate 92 H 04/24/21 12:02 Respiratory Rate 18 04/24/21 12:02 Blood Pressure 131/73 04/24/21 12:02 O2 Sat by Pulse Oximetry 95 04/24/21 12:02 Pain Scale Pain Intensity 0 - [place] Coma Scale Best Eye Response ([place]): (4) open spontaneously Best Verbal Response (Deepika): (5) oriented Best Motor Response ([place]): (6) obeys commands [place] Total: 15 - Physical Exam General Appearance: no apparent distress, alert, anxiety Eye Exam: bilateral eye: normal inspection, PERRL, EOMI Ears, Nose, Throat Exam: normal ENT inspection, moist mucous membranes Neck Exam: normal inspection, non-tender, supple, full range of motion Respiratory: normal breath sounds, lungs clear, airway intact, No chest tenderness, No respiratory distress Cardiovascular: regular rate/rhythm, normal heart sounds, normal peripheral pulses Gastrointestinal: soft, normal bowel sounds, No tenderness Rectal Exam: not done Back Exam: normal inspection, normal range of motion, No CVA tenderness, No vertebral tenderness Extremity Exam: normal inspection, normal range of motion, pelvis stable Mental Status: alert, 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 When compared to EKG dated 03/31/2020, there is new onset of sinus tachycardia today) Ordered Tests: Active Orders 24 hr Category Date Time Status Clean Catch Urine Specimen STAT Care 04/24/21 12:14 Active EKG-ER Only STAT Care 04/24/21 12:14 Active IV Insertion STAT Care 04/24/21 12:14 Active Pulse Oximetry (ED) STAT Care 04/24/21 12:14 Active HEAD WITHOUT CONTRAST [CT] Stat Exams 04/24/21 12:14 Completed CBC W DIFF Stat Lab 04/24/21 12:29 Completed CMP Stat Lab 04/24/21 12:29 Completed UA W/RFX UR CULTURE Stat Lab 04/24/21 12:25 Completed Urine Triage Profile Stat Lab 04/24/21 12:25 Ordered Medication Summary Discontinued Medications Generic Name Dose Route Start Last Admin Trade Name Inez PRN Reason Stop Dose Admin Valproate Sodium 500 mg/ 105 mls @ 210 mls/hr 04/24/21 12:14 04/24/21 12:22 Sodium Chloride IV 04/24/21 12:43 210 mls/hr STAT ONE Administration Sodium Chloride Confirm 04/24/21 12:17 Sodium Chloride 0.9% 100 Ml Bag Administered 04/24/21 12:18 Dose 100 mls @ ud .ROUTE .STK-MED ONE Lorazepam Confirm 04/24/21 12:06 Ativan 2 Mg/1 Ml Vial Administered 04/24/21 12:07 Dose 2 mg .ROUTE .STK-MED ONE Lorazepam 2 mg 04/24/21 12:14 04/24/21 12:22 Ativan 2 Mg/1 Ml Vial IV 04/24/21 12:15 2 mg STAT ONE Administration Valproate Sodium Confirm 04/24/21 12:17 Depacon 500 Mg/5 Ml Administered 04/24/21 12:18 Dose 500 mg IV .STK-MED ONE Lab/Rad Data: Laboratory Result Diagrams 04/24/21 12:29 04/24/21 12:29 Laboratory Results 04/24/21 04/24/21 04/24/21 Range/Units 12:29 12:29 12:29 WBC 3.2 L (4.0-10.5) K/mm3 RBC 5.23 (4.1-5.6) M/mm3 Hgb 14.7 (12.5-18.0) gm/dl Hct 45.0 (42-50) % MCV 86.0 (78-100) fl MCH 28.1 (26-32) pg MCHC 32.7 (32-36) g/dl RDW 12.8 (11.5-14.0) % Plt Count 195 (150-450) K/mm3 MPV 10.8 (7.5-11.0) fl Gran % 38.9 (36.0-66.0) % Eos # (Auto) 0.03 (0-0.5) Absolute Lymphs (auto) 1.67 (1.0-4.6) Absolute Monos (auto) 0.24 (0.0-1.3) Lymphocytes % 52.4 H (24.0-44.0) % Monocytes % 7.5 (0.0-12.0) % Eosinophils % 0.9 (0.00-5.0) % Basophils % 0.3 (0.0-0.4) % Absolute Granulocytes 1.24 L (1.4-6.9) Basophils # 0.01 (0-0.4) Sodium 141 (137-145) mmol/L Potassium 4.0 (3.5-5.1) mmol/L Chloride 105 (98-107) mmol/L Carbon Dioxide 26 (22-30) mmol/L Anion Gap 14.4 (5-15) MEQ/L BUN 8 L (9-20) mg/dL Creatinine 0.93 (0.66-1.25) mg/dL Estimated GFR > 60.0 ML/MIN Glucose 93 (74-106) mg/dL Calcium 9.3 (8.4-10.2) mg/dL Total Bilirubin 0.50 (0.2-1.3) mg/dL AST 28 (17-59) U/L ALT 15 (0-50) U/L Alkaline Phosphatase 63 (38-126) U/L Serum Total Protein 7.6 (6.3-8.2) g/dL Albumin 4.3 (3.5-5.0) g/dL Urine Color (YELLOW) Urine Appearance (CLEAR) Urine pH (5-6) Ur Specific [place] (1.005-1.025) Urine Protein (Negative) Urine Ketones (NEGATIVE) Urine Blood (0-5) Lucho/ul Urine Nitrite (NEGATIVE) Urine Bilirubin (NEGATIVE) Urine Urobilinogen (0-1) mg/dL Ur Leukocyte Esterase (NEGATIVE) Urine WBC (Auto) (0-5) /HPF Urine RBC (Auto) (0-2) /HPF U Epithel Cells (Auto) (FEW) /HPF Urine Bacteria (Auto) (NEGATIVE) /HPF Urine Culture Reflexed (NO) Urine Glucose (NEGATIVE) mg/dL Valproic Acid < 10.0 L (50-100) ug/mL 04/24/21 Range/Units 12:25 WBC (4.0-10.5) K/mm3 RBC (4.1-5.6) M/mm3 Hgb (12.5-18.0) gm/dl Hct (42-50) % MCV (78-100) fl MCH (26-32) pg MCHC (32-36) g/dl RDW (11.5-14.0) % Plt Count (150-450) K/mm3 MPV (7.5-11.0) fl Gran % (36.0-66.0) % Eos # (Auto) (0-0.5) Absolute Lymphs (auto) (1.0-4.6) Absolute Monos (auto) (0.0-1.3) Lymphocytes % (24.0-44.0) % Monocytes % (0.0-12.0) % Eosinophils % (0.00-5.0) % Basophils % (0.0-0.4) % Absolute Granulocytes (1.4-6.9) Basophils # (0-0.4) Sodium (137-145) mmol/L Potassium (3.5-5.1) mmol/L Chloride (98-107) mmol/L Carbon Dioxide (22-30) mmol/L Anion Gap (5-15) MEQ/L BUN (9-20) mg/dL Creatinine (0.66-1.25) mg/dL Estimated GFR ML/MIN Glucose (74-106) mg/dL Calcium (8.4-10.2) mg/dL Total Bilirubin (0.2-1.3) mg/dL AST (17-59) U/L ALT (0-50) U/L Alkaline Phosphatase (38-126) U/L Serum Total Protein (6.3-8.2) g/dL Albumin (3.5-5.0) g/dL Urine Color YELLOW (YELLOW) Urine Appearance CLEAR (CLEAR) Urine pH 6.0 (5-6) Ur Specific [place] 1.017 (1.005-1.025) Urine Protein NEGATIVE (Negative) Urine Ketones NEGATIVE (NEGATIVE) Urine Blood NEGATIVE (0-5) Lucho/ul Urine Nitrite NEGATIVE (NEGATIVE) Urine Bilirubin NEGATIVE (NEGATIVE) Urine Urobilinogen 2 (0-1) mg/dL Ur Leukocyte Esterase NEGATIVE (NEGATIVE) Urine WBC (Auto) 3-5 (0-5) /HPF Urine RBC (Auto) NONE (0-2) /HPF U Epithel Cells (Auto) NONE (FEW) /HPF Urine Bacteria (Auto) NONE (NEGATIVE) /HPF Urine Culture Reflexed NO (NO) Urine Glucose NEGATIVE (NEGATIVE) mg/dL Valproic Acid (50-100) ug/mL - Progress Progress: improved, re-examined Progress Note: 04/24/21 13:25 CAT scan of the head without contrast shows no acute intracranial abnormality. 04/24/21 13:25 Medical decision making: This patient is noncompliant with his medication. He is having breakthrough seizures secondary to noncompliance which is causing blood levels of valproate acid that are low. I reviewed the results of the CAT scan with the patient. He needs to begin taking his medication as prescribed and obtain a consultation with his primary care doctor and neurologist. Counseled pt/family regarding: lab results, diagnosis, need for follow-up, rad results - Departure Departure Disposition: Home Clinical Impression: Noncompliance, Seizure Condition: Stable Critical Care Time: No Referrals: DIOMEDES BLUNT [Primary Care Provider] - Additional Instructions: Take your medication as prescribed. Call your primary care doctor today and your neurologist and let them know that you are having seizures secondary to not taking her medication as prescribed. Prescriptions: Divalproex Sodium [Depakote] 500 mg PO BID #20 tablet.
[2021-04-24] MEDS ORDERED: Ativan 2 MG/1 ML VIAL ONE (12:06)
[2021-04-24] MEDS ORDERED: SODIUM CHLORIDE 0.9% IV ONE (12:14)
[2021-04-24] MEDS ORDERED: DEPACON IV ONE (12:14)
[2021-04-24] MEDS ORDERED: Ativan 2 MG/1 ML VIAL IV ONE (12:14)
[2021-04-24] MEDS ORDERED: Sodium Chloride 0.9% 100 ML BAG 100 ML ONE (12:17)
[2021-04-24] MEDS ORDERED: Depacon 500 MG/5 ML IV ONE (12:17)
[2021-04-24 12:40] LABS: Absolute Neutrophil Ct (ANC) 1.24 (1.4-6.9); BASOPHIL % 0.3 % (0.0-0.4); Basophil (Absolute #) 0.01 (0-0.4); Eosinophil % 0.9 % (0.00-5.0); Eosinophil (Absolute #) 0.03 (0-0.5); Hemoglobin 14.7 gm/dl (12.5-18.0); Lymphocyte (Absolute #) 1.67 (1.0-4.6); Lymphocytes % 52.4 % (24.0-44.0); Mean Corpuscular Hemoglobin 28.1 pg (26-32); Mean Corpuscular Hgb Concent. 32.7 g/dl (32-36); Mean Platelet Volume 10.8 fl (7.5-11.0); Monocyte (Absolute #) 0.24 (0.0-1.3); Monocytes % 7.5 % (0.0-12.0); Neutrophil % 38.9 % (36.0-66.0); Platelet Count 195 K/mm3 (150-450); Red Blood Count 5.23 M/mm3 (4.1-5.6); Red Cell Distribution Width 12.8 % (11.5-14.0); White Blood Count 3.2 K/mm3 (4.0-10.5)
[2021-04-24 12:47] LABS: ALBUMIN 4.3 g/dL (3.5-5.0); ALKALINE PHOSPHATASE 63 U/L (38-126); ANION GAP 14.4 MEQ/L (5-15); BLOOD UREA NITROGEN 8 mg/dL (9-20); CHLORIDE 105 mmol/L (98-107); Calcium 9.3 mg/dL (8.4-10.2); Carbon Dioxide 26 mmol/L (22-30); Creatinine 1 0.93 mg/dL (0.66-1.25); EST GLOMERULAR FILTRATION RATE > 60.0 ML/MIN; Glucose 93 mg/dL (74-106); SGOT/AST 28 U/L (17-59); SGPT/ALT 15 U/L (0-50); SODIUM 141 mmol/L (137-145); Total Protein 7.6 g/dL (6.3-8.2)
[2021-04-24 12:48] LABS: Appearance CLEAR (CLEAR); Bilirubin NEGATIVE (NEGATIVE); Blood NEGATIVE Ery/ul (0-5); Glucose NEGATIVE (NEGATIVE); Ketones NEGATIVE (NEGATIVE); Leukocyte Esterase NEGATIVE (NEGATIVE); Nitrite NEGATIVE (NEGATIVE); Protein,Urine Dip NEGATIVE (Negative); Specific Gravity 1.017 (1.005-1.025); Urobilinogen 2 mg/dL (0-1)
--- NOTE | 2021-04-24 12:51 | XRAY ---
Indication: Seizure-like activity. Multiple contiguous axial images obtained through the head without contrast. Comparison: March 31, 2020. Normal appearing brain parenchyma, ventricles, and bony calvarium. Visualized paranasal sinuses and mastoid air cells are clear. Impression: Continued normal CT head without contrast exam.
[2021-04-24 13:05] LABS: Amphetamine,Urine NEGATIVE (NEGATIVE); Barbiturate,Urine NEGATIVE (NEGATIVE); Benzodiazepine,Urine NEGATIVE (NEGATIVE); Cocaine,Urine NEGATIVE (NEGATIVE); Methadone,Urine NEGATIVE (NEGATIVE); Opiate,Urine POSITIVE (NEGATIVE); PCP,Urine NEGATIVE (NEGATIVE); THC,Urine NEGATIVE (NEGATIVE)
[2021-04-24 14:01] LABS: ACETAMINOPHEN < 10 ug/ml (10-30); ETHYL ALCOHOL < 10 mg/dL (0-10); SALICYLATE < 1.0 mg/dL (2-20)
[2021-04-24 16:23] VITALS: O2SAT 97
[2021-04-24 16:32] VITALS: BP 138/69; PULSE 88
== END 2021-04-24 16:39 | disposition home or self-care (01) ==
LOC: ED 12:01
DX: R56.9 Unspecified convulsions (principal); R45.851 Suicidal ideations; Z91.14 Patient's other noncompliance with medication regimen
CPT/HCPCS: 36000; 36415; 70450; 80053; 80164; 80307; 81001; 85025; 93005; 94760; 96374; 99284; G0480; J2060

== ENCOUNTER 2022-07-25 13:15 | Emergency (ER) | payer OTHER ==
[2022-07-25] MEDS ORDERED: Sodium Chloride 0.9% 1000 ML 1,000 ML IV SCH (13:30)
--- NOTE | 2022-07-25 13:33 | ERPHSYRPT ---
- History of Present Illness Time Seen by Provider: 07/25/22 13:30 Source: patient Exam Limitations: no limitations Patient Subjective Stated Complaint: Pt was at work at [employer] and he felt a seizure coming on so he went into the managers office and laid down on the couch and had a co worker with him that stated that he just shut his eyes and fell over sideways on the couch and did not harm himself Triage Nursing Assessment: Pt brought to the ER by EMS, vitals wnl, rates head pain as 6/10, denies incontinence, denies any post ictal effects, denies any injuries during the seizure, A&O, doesn't appear to be in any distress Physician History: Patient is a 27-year-old male presents to emergency department via EMS for evaluation and treatment of a breakthrough seizure. Patient is known to have a history of seizures. He is on Depakote 500 twice daily. Patient was at work today. Patient states that he felt a seizure coming on. 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 Patient sat down. Patient then had a seizure. Patient last breakthrough seizure was 6 months ago. There is no trauma or injury related to the seizure. Patient is now alert and oriented x4. No tongue biting. Patient did not urinate for defecate on himself. Patient feels well. He has a slight headache. Patient voices no other complaints or concerns at this time. Patient's employer requesting a toxicology screen. Portions of this note were created with voice recognition technology. There may be grammatical, spelling, punctuation or sound alike errors Timing/Duration: today Severity: mild Modifying Factors: Improves With: nothing Associated Symptoms: denies symptoms Allergies/Adverse Reactions: amoxicillin [Amoxicillin] Allergy (Verified 07/25/22 13:30) ceftriaxone sodium [From Rocephin] Allergy (Verified 07/25/22 13:30) latex Allergy (Verified 07/25/22 13:30) Penicillins Allergy (Verified 07/25/22 13:30) Hx Tetanus, Diphtheria Vaccination/Date Given: Yes Hx Influenza Vaccination/Date Given: No Hx Pneumococcal Vaccination/Date Given: No Travel Risk - International Travel Have you traveled outside of the country in past 3 weeks: No - Coronavirus Screening Are you exhibiting any of the following symptoms?: No Close contact with a COVID-19 positive Pt in past 14-21 Days: No - Vaccine Status Have you recieved a Covid-19 vaccination: No - Review of Systems Constitutional: No Symptoms, No Fever, No Chills Eyes: No Symptoms Ears, Nose, & Throat: No Symptoms Respiratory: No Symptoms, No Cough, No Dyspnea Cardiac: No Symptoms, No Chest Pain, No Edema, No Syncope Abdominal/Gastrointestinal: No Symptoms, No Abdominal Pain, No Nausea, No Vomiting, No Diarrhea Genitourinary Symptoms: No Symptoms, No Dysuria Musculoskeletal: No Symptoms, No Back Pain, No Neck Pain Skin: No Symptoms, No Rash Neurological: No Symptoms, No Dizziness, No Focal Weakness, No Sensory Changes Psychological: No Symptoms Endocrine: No Symptoms Hematologic/Lymphatic: No Symptoms Immunological/Allergic: No Symptoms All Other Systems: Reviewed and Negative - Past Medical History Pertinent Past Medical History: Yes Neurological History: Migraines, Seizures ENT History: Other Cardiac History: No Pertinent History Respiratory History: No Pertinent History Endocrine Medical History: Hypoglycemia Musculoskeletal History: Fractures GI Medical History: Other History: No Pertinent History Psycho-Social History: Anxiety, Depression, Other Male Reproductive Disorders: No Pertinent History Other Medical History: 08/26/18 was at [facility] for a "moderate bowel obstruction. ambliopia. schizophrenia. insomnia - Past Surgical History Past Surgical History: Yes Neuro Surgical History: No Pertinent History Cardiac: No Pertinent History Respiratory: No Pertinent History Gastrointestinal: No Pertinent History Genitourinary: No Pertinent History Musculoskeletal: No Pertinent History, Orthopedic Surgery Male Surgical History: No Pertinent History Other Surgical History: right shoulder pin placed d/t fx. right index finger sgy d/t laceration - Social History Smoking Status: Never smoker How long have you smoked: 5 years Exposure to second hand smoke: Yes Drug Use: none Patient Lives Alone: No - Nursing Vital Signs Nursing Vital Signs: Initial Vital Signs Temperature 97.7 F 07/25/22 13:16 Pulse Rate 86 07/25/22 13:16 Blood Pressure 122/80 07/25/22 13:16 O2 Sat by Pulse Oximetry 95 07/25/22 13:16 Pain Scale Pain Intensity 6 - Physical Exam General Appearance: no apparent distress, alert Eye Exam: PERRL/EOMI, eyes nml inspection Ears, Nose, Throat Exam: normal ENT inspection, TMs normal, pharynx normal, moist mucous membranes Neck Exam: normal inspection, non-tender, supple, full range of motion Respiratory Exam: normal breath sounds, lungs clear, airway intact, No respiratory distress Cardiovascular Exam: regular rate/rhythm, normal heart sounds, normal peripheral pulses Gastrointestinal/Abdomen Exam: soft, normal bowel sounds, No tenderness, No mass Back Exam: normal inspection, normal range of motion, No CVA tenderness, No vertebral tenderness Extremity Exam: normal inspection, normal range of motion, pelvis stable Neurologic Exam: alert, oriented x 3, cooperative, normal mood/affect, nml cerebellar function, nml station & gait, sensation nml, No motor deficits Skin Exam: normal color, warm, dry, No rash Lymphatic Exam: No adenopathy SpO2 Interpretation: normal SpO2: 95 O2 Delivery: Room Air - Course Nursing assessment & vital signs reviewed: Yes Ordered Tests: Active Orders 24 hr Category Date Time 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 07/25/22 13:29 Active IV Insertion STAT Care 07/25/22 13:29 Active ACETAMINOPHEN Stat Lab 07/25/22 13:36 Completed CBC W DIFF Stat Lab 07/25/22 13:36 Completed CMP Stat Lab 07/25/22 13:36 Completed ETHYL ALCOHOL Stat Lab 07/25/22 13:36 Completed SALICYLATE Stat Lab 07/25/22 13:36 Completed UA W/RFX CULTURE Stat Lab 07/25/22 14:30 Completed Urine Triage Profile Stat Lab 07/25/22 14:30 Completed Medication Summary Generic Name Dose Route Start Last Admin Trade Name Freq PRN Reason Stop Dose Admin Sodium Chloride 1,000 mls @ 100 mls/hr 07/25/22 13:30 07/25/22 13:47 Sodium Chloride 0.9% 1000 Ml IV 08/24/22 13:29 100 mls/hr .Q10H BENNETT Administration Discontinued Medications Generic Name Dose Route Start Last Admin Trade Name Freq PRN Reason Stop Dose Admin Ketorolac Tromethamine 30 mg 07/25/22 13:34 07/25/22 13:48 Ketorolac Tromethamine 30 Mg/Ml Inj IM 07/25/22 13:35 30 mg STAT ONE Administration Ketorolac Tromethamine Confirm 07/25/22 13:44 Ketorolac Tromethamine 30 Mg/Ml Inj Administered 07/25/22 13:45 Dose 30 mg .ROUTE .[employer] [facility] Lab/Rad Data: Laboratory Result Diagrams 07/25/22 13:36 07/25/22 13:36 Laboratory Results 07/25/22 07/25/22 07/25/22 Range/Units 14:30 14:30 13:45 WBC (4.0-10.5) x10^3/uL RBC (4.1-5.6) x10^6/uL Hgb (12.5-18.0) g/dL Hct (42-50) % MCV (78-100) fL MCH (26-32) pg MCHC (32-36) g/dL RDW (11.5-14.0) % Plt Count (150-450) x10^3/uL MPV (7.5-11.0) fL Gran % (36.0-66.0) % Immature Gran % (Auto) (0.00-0.4) % Nucleat RBC Rel Count (0.00-0.1) % Eos # (Auto) (0-0.5) x10^3/uL Immature Gran # (Auto) (0.00-0.03) x10^3u/L Absolute Lymphs (auto) (1.0-4.6) x10^3/uL Absolute Monos (auto) (0.0-1.3) x10^3/uL Absolute Nucleated RBC (0.00-0.01) x10^3u/L Lymphocytes % (24.0-44.0) % Monocytes % (0.0-12.0) % Eosinophils % (0.00-5.0) % Basophils % (0.0-0.4) % Absolute Granulocytes (1.4-6.9) x10^3/uL Basophils # (0-0.4) x10^3/uL Sodium (137-145) mmol/L Potassium (3.5-5.1) mmol/L Chloride (98-107) mmol/L Carbon Dioxide (22-30) mmol/L Anion Gap (5-15) MEQ/L BUN (9-20) mg/dL Creatinine (0.66-1.25) mg/dL Estimated GFR ML/MIN Glucose (74-106) mg/dL Calcium (8.4-10.2) mg/dL Total Bilirubin (0.2-1.3) mg/dL AST (17-59) U/L ALT (0-50) U/L Alkaline Phosphatase (38-126) U/L Serum Total Protein (6.3-8.2) g/dL Albumin (3.5-5.0) g/dL Urinalys Dipstick Clnc MAIN LAB Urine Color YELLOW (YELLOW) Urine Appearance CLEAR (CLEAR) Urine pH 6.5 (5-6) Ur Specific [place] 1.025 (1.005-1.025) POC Urine Protein Conf NEGATIVE (Negative) Urine Ketones NEGATIVE (NEGATIVE) Urine Nitrite NEGATIVE (NEGATIVE) Urine Bilirubin NEGATIVE (NEGATIVE) Urine Urobilinogen 1 (0-1) mg/dL Urine Leukocytes NEGATIVE (NEGATIVE) Urine WBC (Auto) 3-5 (0-5) /HPF Urine RBC (Auto) NONE (0-2) /HPF U Epithel Cells (Auto) NONE (FEW) /HPF Urine Bacteria (Auto) NONE (NEGATIVE) /HPF Urine RBC NEGATIVE (0-5) Lucho/ul Urine Mucus (Auto) SLIGHT (NEGATIVE) /HPF Ur Culture Indicated? NO Urine Glucose NEGATIVE (NEGATIVE) mg/dL Salicylates (2-20) mg/dL Urine Opiates Level NEGATIVE (NEGATIVE) Ur Methadone NEGATIVE (NEGATIVE) Acetaminophen (10-30) ug/ml Urine Barbiturates NEGATIVE (NEGATIVE) Valproic Acid 46.6 L (50-100) ug/mL Ur Phencyclidine (PCP) NEGATIVE (NEGATIVE) Urine Amphetamine NEGATIVE (NEGATIVE) U Benzodiazepine Level NEGATIVE (NEGATIVE) Urine Cocaine NEGATIVE (NEGATIVE) Urine Marijuana (THC) NEGATIVE (NEGATIVE) Ethyl Alcohol (0-10) mg/dL 07/25/22 07/25/22 Range/Units 13:36 13:36 WBC 2.7 L (4.0-10.5) x10^3/uL RBC 4.82 (4.1-5.6) x10^6/uL Hgb 13.8 (12.5-18.0) g/dL Hct 43.2 (42-50) % MCV 89.6 (78-100) fL MCH 28.6 (26-32) pg MCHC 31.9 L (32-36) g/dL RDW 12.1 (11.5-14.0) % Plt Count 131 L (150-450) x10^3/uL MPV 10.7 (7.5-11.0) fL Gran % 38.6 (36.0-66.0) % Immature Gran % (Auto) 0.4 (0.00-0.4) % Nucleat RBC Rel Count 0.0 (0.00-0.1) % Eos # (Auto) 0.01 (0-0.5) x10^3/uL Immature Gran # (Auto) 0.01 (0.00-0.03) x10^3u/L Absolute Lymphs (auto) 1.41 (1.0-4.6) x10^3/uL Absolute Monos (auto) 0.21 (0.0-1.3) x10^3/uL Absolute Nucleated RBC 0.00 (0.00-0.01) x10^3u/L Lymphocytes % 52.4 H (24.0-44.0) % Monocytes % 7.8 (0.0-12.0) % Eosinophils % 0.4 (0.00-5.0) % Basophils % 0.4 (0.0-0.4) % Absolute Granulocytes 1.04 L (1.4-6.9) x10^3/uL Basophils # 0.01 (0-0.4) x10^3/uL Sodium 139 (137-145) mmol/L Potassium 3.7 (3.5-5.1) mmol/L Chloride 103 (98-107) mmol/L Carbon Dioxide 29 (22-30) mmol/L Anion Gap 9.9 (5-15) MEQ/L BUN 9 (9-20) mg/dL Creatinine 0.93 (0.66-1.25) mg/dL Estimated GFR > 60.0 ML/MIN Glucose 97 (74-106) mg/dL Calcium 8.7 (8.4-10.2) mg/dL Total Bilirubin 0.40 (0.2-1.3) mg/dL AST 26 (17-59) U/L ALT 17 (0-50) U/L Alkaline Phosphatase 58 (38-126) U/L Serum Total Protein 7.4 (6.3-8.2) g/dL Albumin 4.1 (3.5-5.0) g/dL Urinalys Dipstick Clnc Urine Color (YELLOW) Urine Appearance (CLEAR) Urine pH (5-6) Ur Specific [place] (1.005-1.025) POC Urine Protein Conf (Negative) Urine Ketones (NEGATIVE) Urine Nitrite (NEGATIVE) Urine Bilirubin (NEGATIVE) Urine Urobilinogen (0-1) mg/dL Urine Leukocytes (NEGATIVE) Urine WBC (Auto) (0-5) /HPF Urine RBC (Auto) (0-2) /HPF U Epithel Cells (Auto) (FEW) /HPF Urine Bacteria (Auto) (NEGATIVE) /HPF Urine RBC (0-5) Lucho/ul Urine Mucus (Auto) (NEGATIVE) /HPF Ur Culture Indicated? Urine Glucose (NEGATIVE) mg/dL Salicylates < 1.0 L (2-20) mg/dL Urine Opiates Level (NEGATIVE) Ur Methadone (NEGATIVE) Acetaminophen < 10 L (10-30) ug/ml Urine Barbiturates (NEGATIVE) Valproic Acid (50-100) ug/mL Ur Phencyclidine (PCP) (NEGATIVE) Urine Amphetamine (NEGATIVE) U Benzodiazepine Level (NEGATIVE) Urine Cocaine (NEGATIVE) Urine Marijuana (THC) (NEGATIVE) Ethyl Alcohol < 10 (0-10) mg/dL - Progress Progress: improved Progress Note: Patient reassessed. He is functioning back at his baseline. Mother at bedside. We contacted patient's primary care doctor Dr. Toro who advises against increasing his dose of valproic acid. Will discharge patient home at this time. They will follow-up with Dr. Toro within 48 hours for evaluation. They voiced no other complaints concerns at this time. Portions of this note were created with voice recognition technology. There may be grammatical, spelling, punctuation or sound alike errors 07/25/22 15:57 Discussed with : [place] Will see patient in: office Counseled pt/family regarding: lab results, diagnosis, need for follow-up, rad results - Departure Departure Disposition: Home Clinical Impression: Seizure, Leukopenia, Thrombocytopenia Condition: Stable Critical Care Time: No Referrals: DIOMEDES TORO [Primary Care Provider] - Follow up/PCP as directed Additional Instructions: Discharge/Care Plan GLENDY CAVAZOS was seen on 07/25/22 in the Emergency Room. The patient was counseled regarding Diagnosis,Lab results, Imaging studies, need for follow up and when to return to the Emergency Room. Prescriptions given: Discharge Note I have spoken with the patient and/or caregivers. I have explained the patient's condition, diagnosis and treatment plan based on the information available to me at this time. I have answered the patient's and/or caregiver's questions and addressed any concerns. The patient and/or caregivers have as good understanding of the patient's diagnosis, condition and treatment plan as can be expected at this point. The vital signs have been stable. The patient's condition is stable and appropriate for discharge from the emergency department. The patient will pursue further outpatient evaluation with the primary care physician or other designated or consulting physician as outlined in the discharge instructions. The patient and/or caregivers are agreeable to this plan of care and follow-up instructions have been explained in detail. The patient and/or caregivers have received these instruction. The patient/and or caregivers are aware that any significant change in condition or worsening of symptoms should prompt an immediate return to this or the closest emergency department or call 911.
[2022-07-25] MEDS ORDERED: TORAdol 30 mg Injection IM ONE (13:34)
[2022-07-25 13:43] LABS: Absolute Neutrophil Ct (ANC) 1.04 x10^3/uL (1.4-6.9); Basophil (Absolute #) 0.01 x10^3/uL (0-0.4); Eosinophil % 0.4 % (0.00-5.0); Eosinophil (Absolute #) 0.01 x10^3/uL (0-0.5); Hematocrit 43.2 % (42-50); Hemoglobin 13.8 g/dL (12.5-18.0); Lymphocyte (Absolute #) 1.41 x10^3/uL (1.0-4.6); Lymphocytes % 52.4 % (24.0-44.0); Mean Cell Volume 89.6 fL (78-100); Mean Corpuscular Hemoglobin 28.6 pg (26-32); Mean Corpuscular Hgb Concent. 31.9 g/dL (32-36); Mean Platelet Volume 10.7 fL (7.5-11.0); Monocyte (Absolute #) 0.21 x10^3/uL (0.0-1.3); Monocytes % 7.8 % (0.0-12.0); Neutrophil % 38.6 % (36.0-66.0); Platelet Count 131 x10^3/uL (150-450); Red Blood Count 4.82 x10^6/uL (4.1-5.6); Red Cell Distribution Width 12.1 % (11.5-14.0); White Blood Count 2.7 x10^3/uL (4.0-10.5)
[2022-07-25] MEDS ORDERED: Sodium Chloride 0.9% 1000 ML 1,000 ML ONE (13:44)
[2022-07-25] MEDS ORDERED: TORAdol 30 mg Injection ONE (13:44)
[2022-07-25 13:54] LABS: ACETAMINOPHEN < 10 ug/ml (10-30); ALBUMIN 4.1 g/dL (3.5-5.0); ALKALINE PHOSPHATASE 58 U/L (38-126); ANION GAP 9.9 MEQ/L (5-15); BLOOD UREA NITROGEN 9 mg/dL (9-20); CHLORIDE 103 mmol/L (98-107); Calcium 8.7 mg/dL (8.4-10.2); Carbon Dioxide 29 mmol/L (22-30); Creatinine 1 0.93 mg/dL (0.66-1.25); EST GLOMERULAR FILTRATION RATE > 60.0 ML/MIN; ETHYL ALCOHOL < 10 mg/dL (0-10); Glucose 97 mg/dL (74-106); Potassium 3.7 mmol/L (3.5-5.1); SALICYLATE < 1.0 mg/dL (2-20); SGOT/AST 26 U/L (17-59); SGPT/ALT 17 U/L (0-50); SODIUM 139 mmol/L (137-145); Total Protein 7.4 g/dL (6.3-8.2)
[2022-07-25 14:46] LABS: Mucus SLIGHT /HPF (NEGATIVE)
[2022-07-25 14:49] LABS: Appearance CLEAR (CLEAR); Bilirubin NEGATIVE (NEGATIVE); Dipstick done @ ? MAIN LAB; Glucose NEGATIVE (NEGATIVE); Ketones NEGATIVE (NEGATIVE); Nitrite NEGATIVE (NEGATIVE); Ph 6.5 (5-6); Protein,Urine Dip NEGATIVE (Negative); RBC NEGATIVE Ery/ul (0-5); Specific Gravity 1.025 (1.005-1.025); Urobilinogen 1 mg/dL (0-1)
[2022-07-25 14:58] LABS: Amphetamine,Urine NEGATIVE (NEGATIVE); Barbiturate,Urine NEGATIVE (NEGATIVE); Benzodiazepine,Urine NEGATIVE (NEGATIVE); Cocaine,Urine NEGATIVE (NEGATIVE); Methadone,Urine NEGATIVE (NEGATIVE); Opiate,Urine NEGATIVE (NEGATIVE); PCP,Urine NEGATIVE (NEGATIVE); THC,Urine NEGATIVE (NEGATIVE)
[2022-07-25 15:31] VITALS: BP 112/70
[2022-07-25 15:46] LABS: Urine Cultured Indicated? NO
[2022-07-25 15:59] VITALS: O2SAT 95
[2022-07-25 16:01] VITALS: PULSE 73
== END 2022-07-25 16:07 | disposition home or self-care (01) ==
LOC: ED 13:15
DX: G40.909 Epilepsy, unspecified, not intractable, without status epilepticus (principal); D72.819 Decreased white blood cell count, unspecified; D69.6 Thrombocytopenia, unspecified; Z79.899 Other long term (current) drug therapy; Z28.310 Unvaccinated for COVID-19
CPT/HCPCS: 36415; 80053; 80164; 80307; 81015; 85025; 93041; 96372; 99284; G0480; J1885